=== PATIENT | male | born 1940 | race Caucasian/White ===

== ENCOUNTER → 2017-06-27 13:24 | Outpatient (CLI) | payer MEDICARE, SELFPAY ==
--- NOTE | 2017-06-27 13:37 | US_ITS ---
US retroperitoneal comp HISTORY: ITS.REASON: CHRONIC KIDNEY DISEASE STAGE 4 ORDERING PHYSICIAN: Lashon Ross PATIENT AGE: 77 years COMPARISON: None FINDINGS: RIGHT KIDNEY:There is a 4 cm right renal cyst along the mid polar region of the right kidney. The right kidney measures 10 x 5 x 5 cm.. Normal size and echogenicity. No hydronephrosis LEFT KIDNEY:Unremarkable. No hydronephrosis. Normal size and echogenicity. The left kidney measures 11.5 x 5 x 4.5 cm OTHER FINDINGS: No other pertinent findings IMPRESSION: 4 cm right renal cyst otherwise negative bilateral renal ultrasound
== END ==
PROVIDERS: Family Provider Nurse Practitioner Family; PCP Nurse Practitioner Family; Visit Provider Nurse Practitioner Family
DX: N18.4 Chronic kidney disease, stage 4 (severe) (principal)
CPT/HCPCS: 76770

== ENCOUNTER → 2017-07-19 09:32 | Outpatient (CLI) | payer MEDICARE, SELFPAY ==
[2017-07-19 09:39] LABS: Microscopic, Urine URINE MICROSCOPIC (MICROSCOPIC)
[2017-07-19 09:57] LABS: Appearance,Urine CLEAR (Clear); Bilirubin,Urine Negative (Negative); Blood, Urine Negative (Negative); Color,Urine YELLOW (Yellow); Glucose,Urine (UA) Negative (Negative); Ketones,Urine Negative (Negative); Leukocyte Esterase,Urine Negative (Negative); Nitrate,Urine Negative (Negative); Protein,Urine 1+ (Negative); Urobilinogen,Urine 0.2 EU/dl (0.2)
[2017-07-19 10:06] LABS: Creatinine,Urine Random 122 mg/dL (20-320); Total Protein,Urine Random 58.9 mg/dL (0.0-11.9)
[2017-07-19 10:15] LABS: Basophils # 0.1 K/mm3 (0-0.2); Basophils % 0.8 % (0.1-2.0); Eosinophils # 0.5 K/mm3 (0.0-0.4); Eosinophils % 5.5 % (0.1-12.0); Hemoglobin 11.5 g/dL (14.1-18.0); Lymphocytes # 1.5 K/mm3 (0.7-4.5); Lymphocytes % 18.6 K/mm3 (10-50); Mean Corpuscular Hemoglobin 25.8 pg (27.0-31.2); Mean Corpuscular Volume 83.2 fl (80-94); Mean Platelet Volume 7.6 fl (7.4-10.4); Monocytes # 0.4 K/mm3 (0.1-1.0); Monocytes % 5.4 % (1.7-9.3); Neutrophils # 5.7 K/mm3 (1.8-7.8); Neutrophils % 69.8 % (37.0-80.0); Platelet Count 277 K/mm3 (142-424); Red Blood Count 4.45 M/mm3 (4.60-6.20); Red Cell Distribution Width 15.2 % (11.5-17.5); White Blood Count 8.2 K/mm3 (4.8-10.8)
[2017-07-19 10:21] LABS: Bacteria,Urine 1+ /lpf
[2017-07-19 11:21] LABS: Anion Gap 15.8 mEq/L (5-15); Blood Urea Nitrogen 15 mg/dL (7-18); Calcium 8.9 mg/dL (8.5-10.1); Carbon Dioxide 30 mmol/L (21.0-32.0); Chloride 101 mmol/L (98-107); Creatinine,Serum 1.83 mg/dL (0.70-1.30); Estimated Glomerular Filt Rate 36 ml/min (>60); GFR (African American) 43 ML/MIN (>60); Glucose 151 mg/dL (74-106); Phosphorous 4.3 mg/dL (2.4-4.9); Sodium 142 mmol/L (136-145)
[2017-07-19 11:30] LABS: Potassium 4.8 mmoL/L (3.5-5.1)
[2017-07-20 18:28] LABS: Parathyroid Hormone Intact 60 pg/mL (15-65); Vitamin D 25 Hydroxy 24.6 ng/mL (30.0-100.0)
== END ==
PROVIDERS: PCP Nurse Practitioner Family; Visit Provider Internal Medicine Nephrology
DX: N18.4 Chronic kidney disease, stage 4 (severe) (principal)
CPT/HCPCS: 36415; 80069; 81001; 82570; 82652; 83970; 84155; 85025

== ENCOUNTER → 2017-12-06 08:36 | Outpatient (CLI) | payer MEDICARE, SELFPAY ==
--- NOTE | 2017-12-06 | AS_ITS ---
Renal Arterial Duplex IMPRESSIONS 1. The right renal artery appears normal. 2. The left renal artery appears normal. 3. No evidence of renal artery stenosis, bilaterally. 4. Incidental findings: A cyst is visualized at the right kidney measuring 4.3 X 3.9 cm. Complete renal arterial duplex. Duplex scan and Doppler flow study including spectral analysis, color and junior scale imaging. Height: Height: 177.8cm. Height: 70in. Weight: Weight: 89.8kg. Weight: 197.6lb. Body mass index: BMI: 28.4kg/m^2. Body surface area: BSA: 2.12m^2. Location: Vascular laboratory. Patient status: Outpatient. Tables: Arterial flow: + +--------+---------+ Location V sys V ed + +--------+---------+ Right renal - proximal -157cm/s -24.6cm/s + +--------+---------+ Right renal - mid 103cm/s 22.9cm/s + +--------+---------+ Right renal - distal 62.3cm/s 19.6cm/s + +--------+---------+ Left renal - proximal 87cm/s 26.9cm/s + +--------+---------+ Left renal - mid 72.5cm/s 23.8cm/s + +--------+---------+ Left renal - distal 83.9cm/s 29cm/s + +--------+---------+ Right renal - Origin 188cm/s 55cm/s + +--------+---------+ Left renal - Origin 97cm/s 20cm/s + +--------+---------+ Aorta 85cm/s 14cm/s + +--------+---------+ Artery mapping: + +-------+-------+ Location Patency Comment + +-------+-------+ Abdominal aorta - mid Patent 2 cm + +-------+-------+ Renal anatomy: + +------+------+ Left Right + +------+------+ Long axis 10.2cm 10.7cm + +------+------+ Short axis 4.4cm 5.8cm + +------+------+ (Report amended ) Electronically signed by: Ramon Gale [id number]
== END ==
PROVIDERS: Family Provider Nurse Practitioner Family; PCP Nurse Practitioner Family; Visit Provider Nurse Practitioner Family
DX: I10 Essential (primary) hypertension (principal)
CPT/HCPCS: 93976

== ENCOUNTER → 2017-12-17 10:41 | Outpatient (CLI) | payer MEDICARE, SELFPAY ==
[2017-12-17 11:07] LABS: Basophils % 0.6 % (0.1-2.0); Eosinophils # 0.2 K/mm3 (0.0-0.4); Eosinophils % 3.1 % (0.1-12.0); Hematocrit 38.6 % (42.0-52.0); Hemoglobin 11.7 g/dL (14.1-18.0); Lymphocytes # 1.5 K/mm3 (0.7-4.5); Lymphocytes % 20.6 K/mm3 (10-50); Mean Corpuscular HGB Conc 30.3 g/dL (31.8-35.4); Mean Corpuscular Hemoglobin 25.9 pg (27.0-31.2); Mean Corpuscular Volume 85.4 fl (80-94); Mean Platelet Volume 8.5 fl (7.4-10.4); Monocytes # 0.5 K/mm3 (0.1-1.0); Monocytes % 6.7 % (1.7-9.3); Neutrophils % 68.9 % (37.0-80.0); Platelet Count 196 K/mm3 (142-424); Red Blood Count 4.52 M/mm3 (4.60-6.20); Red Cell Distribution Width 15.4 % (11.5-17.5); White Blood Count 7.3 K/mm3 (4.8-10.8)
--- NOTE | 2017-12-17 11:08 | CT_ITS ---
CT head/brain wo con Ordering Physician: Lashon Ross Patient Age: 77 years: Male HISTORY: ITS.REASON: SYNCOPE Syncopal episode on Sunday. Right fore head when fell dizzy on and off dizzy since that TECHNIQUE: Routine axial CT head without contrast with brain and bone windows performed and reviewed. COMPARISON :04/09/2015 CT head FINDINGS No acute intracranial findings. No hemorrhage. No mass. No subdural collection or extra-axial collection. No territorial infarct. There is diffuse cerebral atrophy which shown very subtle progression since 2015. 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 Stable appearance since 2014. Chronic small vessel deep white matter ischemic gliotic changes elsewhere This does include a new area of low density and deep white matter at right frontal lobe overlying the anterior aspect right lateral ventricle image 28 most likely this reflects a chronic small vessel ischemic region which is occurred since 2014. Doubt acute. Difficult to totally exclude. There is also some other slightly more evident deep white matter changes adjacent to the body of the right lateral ventricle, axial image 29, 28, & vague low-density white matter changes overlying the atrial lateral ventricles likely stable. Posterior fossa unremarkable. Prominent mucosal thickening is near opacification of the maxillary sinuses. AP mild amount of air remains essentially both maxillary sinuses. Generous mucosal thickening left ethmoid air cells and moderate right ethmoid air cells noted. Sphenoid sinuses clear. Frontal sinuses clear Mastoid air cells are well-developed. Mild mastoid effusion bilateral... Minimal mastoid air cell opacification/left mastoid tip and posteriorly reflecting minimal mastoid effusion. Similar appearance towards the right mastoid air tip air cells... These reflect mild mastoid effusion. Bilateral Middle ear clear. IMPRESSION . 1. No hemorrhage. No definitive acute findings slight progression of cerebral atrophy. Since 2014 2. Chronic small vessel deep white matter ischemic changes again noted bilaterally . There are some additional low density areas periventricular deep white matter, right frontal lobe; which have developed since 2015 CT.. Favor these more likely reflect interval chronic small vessel ischemic gliotic foci; but cannot totally exclude a recent event Require correlation. (Any new left-sided symptoms?) 3. 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
[2017-12-17 12:27] LABS: Alanine Aminotransferase 30 U/L (12-78); Albumin Level 3.8 gm/dL (3.4-5.0); Albumin/Globulin Ratio 1.2 (1.1-1.8); Alkaline Phosphatase 137 U/L (46-116); Anion Gap 9.1 mEq/L (5-15); Aspartate Amino Transferase 19 U/L (15-37); Bilirubin,Total 0.3 mg/dL (0.2-1.0); Blood Urea Nitrogen 25 mg/dL (7-18); Calcium 8.8 mg/dL (8.5-10.1); Carbon Dioxide 33 mmol/L (21.0-32.0); Chloride 104 mmol/L (98-107); Creatinine,Serum 1.88 mg/dL (0.70-1.30); Estimated Glomerular Filt Rate 35 ml/min (>60); GFR (African American) 42 ML/MIN (>60); Globulin 3.1 gm/dl (1.3-3.2); Glucose 97 mg/dL (74-106); Potassium 5.1 mmoL/L (3.5-5.1); Sodium 141 mmol/L (136-145); Total Protein,Serum 6.9 gm/dL (6.4-8.2)
== END ==
PROVIDERS: Visit Provider Nurse Practitioner Family
DX: R55 Syncope and collapse (principal)
CPT/HCPCS: 36415; 70450; 80053; 85025; 93005

== ENCOUNTER → 2018-01-21 09:59 | Outpatient (CLI) | payer MEDICARE, SELFPAY ==
[2018-01-21 10:03] LABS: Microscopic, Urine URINE MICROSCOPIC (MICROSCOPIC)
[2018-01-21 10:29] LABS: Basophils % 0.3 % (0.1-2.0); Eosinophils # 0.1 K/mm3 (0.0-0.4); Eosinophils % 1.7 % (0.1-12.0); Hematocrit 37.6 % (42.0-52.0); Lymphocytes # 1.2 K/mm3 (0.7-4.5); Lymphocytes % 15.6 K/mm3 (10-50); Mean Corpuscular Hemoglobin 26.9 pg (27.0-31.2); Mean Corpuscular Volume 83.9 fl (80-94); Mean Platelet Volume 7.7 fl (7.4-10.4); Monocytes # 0.4 K/mm3 (0.1-1.0); Monocytes % 5.6 % (1.7-9.3); Neutrophils # 5.7 K/mm3 (1.8-7.8); Neutrophils % 76.7 % (37.0-80.0); Platelet Count 209 K/mm3 (142-424); Red Blood Count 4.49 M/mm3 (4.60-6.20); Red Cell Distribution Width 15.4 % (11.5-17.5); White Blood Count 7.5 K/mm3 (4.8-10.8)
[2018-01-21 11:11] LABS: Appearance,Urine CLEAR (Clear); Bilirubin,Urine Negative (Negative); Blood, Urine Negative (Negative); Color,Urine YELLOW (Yellow); Glucose,Urine (UA) Negative (Negative); Ketones,Urine Negative (Negative); Leukocyte Esterase,Urine Negative (Negative); Nitrate,Urine Negative (Negative); Protein,Urine Negative (Negative); Specific Gravity, Urine <= 1.005 (1.005-1.030); Urobilinogen,Urine 0.2 EU/dl (0.2)
[2018-01-21 11:16] LABS: Creatinine,Urine Random 51 mg/dL (20-320); Total Protein,Urine Random 23.2 mg/dL (0.0-11.9)
[2018-01-21 11:17] LABS: Albumin Level 4.2 gm/dL (3.4-5.0); Anion Gap 13.3 mEq/L (5-15); Blood Urea Nitrogen 25 mg/dL (7-18); Calcium 8.9 mg/dL (8.5-10.1); Carbon Dioxide 27 mmol/L (21.0-32.0); Chloride 100 mmol/L (98-107); Creatinine,Serum 1.64 mg/dL (0.70-1.30); Estimated Glomerular Filt Rate 41 ml/min (>60); GFR (African American) 49 ML/MIN (>60); Glucose 130 mg/dL (74-106); Phosphorous 4.2 mg/dL (2.4-4.9); Potassium 5.3 mmoL/L (3.5-5.1); Sodium 135 mmol/L (136-145)
[2018-01-21 11:18] LABS: Bacteria,Urine 1+ /lpf; Squamous Epithelial Cell,Urine Occasional #/hpf (0-5); WBC,Urine Occasional #/hpf (0-3)
[2018-01-23 16:50] LABS: Parathyroid Hormone Intact 52 pg/mL (15-65); Vitamin D 25 Hydroxy 29.4 ng/mL (30.0-100.0)
== END ==
PROVIDERS: Visit Provider Internal Medicine Nephrology
DX: N18.4 Chronic kidney disease, stage 4 (severe) (principal)
CPT/HCPCS: 36415; 80069; 81001; 82570; 82652; 83970; 84155; 85025

== ENCOUNTER → 2018-02-11 13:20 | Outpatient (POV) | payer MEDICARE, SELFPAY | PROVIDERS: Family Provider Nurse Practitioner Family; PCP Nurse Practitioner Family; Visit Provider Internal Medicine Nephrology | DX: Z00.00 Encounter for general adult medical examination without abnormal findings (principal) ==

== ENCOUNTER → 2018-03-08 09:07 | Outpatient (CLI) | payer MEDICARE, SELFPAY ==
[2018-03-08 10:42] LABS: Albumin Level 3.8 gm/dL (3.4-5.0); Anion Gap 12.2 mEq/L (5-15); Blood Urea Nitrogen 27 mg/dL (7-18); Calcium 8.9 mg/dL (8.5-10.1); Carbon Dioxide 30 mmol/L (21.0-32.0); Chloride 102 mmol/L (98-107); Creatinine,Serum 2.03 mg/dL (0.70-1.30); Estimated Glomerular Filt Rate 32 ml/min (>60); GFR (African American) 39 ML/MIN (>60); Glucose 208 mg/dL (74-106); Phosphorous 3.7 mg/dL (2.4-4.9); Potassium 5.2 mmoL/L (3.5-5.1); Sodium 139 mmol/L (136-145)
== END ==
PROVIDERS: PCP Nurse Practitioner Family; Visit Provider Internal Medicine Nephrology
DX: N18.4 Chronic kidney disease, stage 4 (severe) (principal)
CPT/HCPCS: 36415; 80069

== ENCOUNTER → 2018-03-11 14:35 | Outpatient (POV) | payer MEDICARE, SELFPAY | PROVIDERS: Family Provider Nurse Practitioner Family; PCP Nurse Practitioner Family; Visit Provider Internal Medicine Nephrology | DX: Z00.00 Encounter for general adult medical examination without abnormal findings (principal) ==

== ENCOUNTER → 2018-10-23 08:34 | Outpatient (CLI) | payer MEDICARE, SELFPAY ==
[2018-10-23 08:36] LABS: Microscopic, Urine URINE MICROSCOPIC (MICROSCOPIC)
[2018-10-23 09:13] LABS: Basophils # 0.1 K/mm3 (0-0.2); Eosinophils # 0.4 K/mm3 (0.0-0.4); Eosinophils % 6.4 % (0.1-12.0); Hematocrit 35.3 % (42.0-52.0); Hemoglobin 11.4 g/dL (14.1-18.0); Lymphocytes # 1.6 K/mm3 (0.7-4.5); Lymphocytes % 26.9 % (10-50); Mean Corpuscular HGB Conc 32.3 g/dL (31.8-35.4); Mean Corpuscular Hemoglobin 27.1 pg (27.0-31.2); Mean Corpuscular Volume 83.9 fl (80-94); Mean Platelet Volume 8.2 fl (7.4-10.4); Monocytes # 0.3 K/mm3 (0.1-1.0); Monocytes % 5.9 % (1.7-9.3); Neutrophils # 3.5 K/mm3 (1.8-7.8); Neutrophils % 59.8 % (37.0-80.0); Platelet Count 189 K/mm3 (142-424); Red Blood Count 4.21 M/mm3 (4.60-6.20); Red Cell Distribution Width 15.7 % (11.5-17.5); White Blood Count 5.9 K/mm3 (4.8-10.8)
[2018-10-23 10:24] LABS: Appearance,Urine CLEAR (Clear); Bilirubin,Urine Negative (Negative); Blood, Urine Negative (Negative); Color,Urine YELLOW (Yellow); Glucose,Urine (UA) Negative (Negative); Ketones,Urine Negative (Negative); Leukocyte Esterase,Urine Negative (Negative); Nitrate,Urine Negative (Negative); Protein,Urine Negative (Negative); Specific Gravity, Urine <= 1.005 (1.005-1.030); Urobilinogen,Urine 0.2 EU/dl (0.2)
[2018-10-23 11:02] LABS: Creatinine,Urine Random 68 mg/dL (20-320)
[2018-10-23 11:15] LABS: Bacteria,Urine Trace /lpf
[2018-10-23 11:20] LABS: Albumin Level 3.8 gm/dL (3.4-5.0); Anion Gap 15.9 mEq/L (5-15); Blood Urea Nitrogen 21 mg/dL (7-18); Carbon Dioxide 28 mmol/L (21.0-32.0); Chloride 100 mmol/L (98-107); Creatinine,Serum 2.26 mg/dL (0.70-1.30); Estimated Glomerular Filt Rate 28 ml/min (>60); GFR (African American) 34 ML/MIN (>60); Glucose 161 mg/dL (74-106); Phosphorous 5.3 mg/dL (2.4-4.9); Potassium 4.9 mmoL/L (3.5-5.1); Sodium 139 mmol/L (136-145)
[2018-10-25 08:11] LABS: Microalbumin, Urine 25.5 ug/mL (Not Estab.)
== END ==
PROVIDERS: Visit Provider Internal Medicine Nephrology
DX: N18.3 Chronic kidney disease, stage 3 (moderate) (principal)
CPT/HCPCS: 36415; 80069; 81001; 82043; 82570; 85025

== ENCOUNTER → 2018-10-28 12:38 | Outpatient (POV) | payer MEDICARE, SELFPAY | PROVIDERS: Visit Provider Internal Medicine Nephrology | DX: Z00.00 Encounter for general adult medical examination without abnormal findings (principal) ==

== ENCOUNTER → 2019-04-25 09:15 | Outpatient (CLI) | payer MEDICARE, SELFPAY ==
--- NOTE | 2019-04-25 09:19 | XR_ITS ---
PROCEDURE: XR DEXA AXIAL SKELETON CLINICAL HISTORY: OSTEOPOROSIS,H/O OSTEOARTHRITIS COMPARISON: No exams were available for comparison FINDINGS: L1-L4 density is 1.428 grams/centimeters sq with a T-score of 1.7. Mean hip density is 0.802 grams/centimeters sq with a T-score -2.1 which is low.. The age matched Z-score is -0.9 of the hips and 1.9 of the lumbar spine IMPRESSION: Low bone density. Fracture risk is high. Suggest treatment and follow-up exam in 1 year. Dictated by: Ramon Gale MD 04/25/2019 15:27 Electronically signed by Ramon Gale MD in [place] 04/25/2019 15:27
[2019-04-25 10:22] LABS: Basophils # 0.1 K/mm3 (0-0.2); Basophils % 1.2 % (0.1-2.0); Eosinophils # 0.3 K/mm3 (0.0-0.4); Eosinophils % 5.1 % (0.1-12.0); Hematocrit 41.5 % (42.0-52.0); Lymphocytes # 1.3 K/mm3 (0.7-4.5); Mean Corpuscular HGB Conc 31.4 g/dL (31.8-35.4); Mean Corpuscular Hemoglobin 27.5 pg (27.0-31.2); Mean Corpuscular Volume 87.8 fl (80-94); Monocytes # 0.4 K/mm3 (0.1-1.0); Monocytes % 5.9 % (1.7-9.3); Neutrophils # 4.5 K/mm3 (1.8-7.8); Neutrophils % 67.8 % (37.0-80.0); Platelet Count 198 K/mm3 (142-424); Red Blood Count 4.73 M/mm3 (4.60-6.20); Red Cell Distribution Width 14.4 % (11.5-17.5); White Blood Count 6.6 K/mm3 (4.8-10.8)
[2019-04-25 11:20] LABS: Albumin Level 3.9 gm/dL (3.4-5.0); Anion Gap 9.7 mEq/L (5-15); Blood Urea Nitrogen 22 mg/dL (7-18); Calcium 9.1 mg/dL (8.5-10.1); Carbon Dioxide 32 mmol/L (21.0-32.0); Chloride 102 mmol/L (98-107); Creatinine,Serum 2.11 mg/dL (0.70-1.30); Estimated Glomerular Filt Rate 30 ml/min (>60); GFR (African American) 37 ML/MIN (>60); Glucose 173 mg/dL (74-106); Phosphorous 4.4 mg/dL (2.4-4.9); Potassium 4.7 mmoL/L (3.5-5.1); Sodium 139 mmol/L (136-145)
== END ==
PROVIDERS: PCP Nurse Practitioner Family; Visit Provider Internal Medicine Nephrology
DX: M81.0 Age-related osteoporosis without current pathological fracture (principal); N18.4 Chronic kidney disease, stage 4 (severe)
CPT/HCPCS: 36415; 77080; 80069; 85025

== ENCOUNTER → 2019-04-25 10:04 | Outpatient (CLI) | payer MEDICARE, SELFPAY | PROVIDERS: Visit Provider Internal Medicine Nephrology | DX: N18.4 Chronic kidney disease, stage 4 (severe) (principal); M81.0 Age-related osteoporosis without current pathological fracture | CPT/HCPCS: 36415; 77080; 80069; 85025 ==

== ENCOUNTER → 2019-05-12 15:15 | Outpatient (POV) | payer MEDICARE, SELFPAY | PROVIDERS: Visit Provider Internal Medicine Nephrology | DX: Z00.00 Encounter for general adult medical examination without abnormal findings (principal) ==

== ENCOUNTER → 2020-02-02 08:54 | Outpatient (CLI) | payer MEDICARE, SELFPAY ==
[2020-02-02 09:27] LABS: Basophils # 0.1 K/mm3 (0-0.2); Eosinophils # 0.4 K/mm3 (0.0-0.4); Hematocrit 39.9 % (42.0-52.0); Hemoglobin 13.7 g/dL (14.1-18.0); Lymphocytes # 1.5 K/mm3 (0.7-4.5); Lymphocytes % 16.3 % (10-50); Mean Corpuscular HGB Conc 34.3 g/dL (31.8-35.4); Mean Corpuscular Hemoglobin 28.8 pg (27.0-31.2); Mean Corpuscular Volume 84.1 fl (80-94); Mean Platelet Volume 7.7 fl (7.4-10.4); Monocytes # 0.5 K/mm3 (0.1-1.0); Monocytes % 5.5 % (1.7-9.3); Neutrophils # 6.5 K/mm3 (1.8-7.8); Platelet Count 241 K/mm3 (142-424); Red Blood Count 4.75 M/mm3 (4.60-6.20); Red Cell Distribution Width 15.1 % (11.5-17.5); White Blood Count 8.8 K/mm3 (4.8-10.8)
[2020-02-02 09:49] LABS: Albumin Level 4.1 g/dl (3.5-5.0); Anion Gap 15.4 mEq/L (5-15); Blood Urea Nitrogen 16 mg/dl (9-20); Calcium 9.1 mg/dl (8.4-10.2); Carbon Dioxide 29 mmol/L (22.0-30.0); Chloride 97 mmol/L (98-107); Estimated Glomerular Filt Rate 45 ml/min (>60); GFR (African American) 54 ML/MIN (>60); Glucose 168 mg/dl (74-100); Phosphorous 4.4 mg/dl (2.5-4.5); Potassium 4.4 mmoL/L (3.5-5.1); Sodium 137 mmol/L (136-145); Uric Acid 7.7 mg/dl (3.5-8.5)
[2020-02-02 10:06] LABS: 25-OH Vitamin D, Total 17.8 ng/mL (30-100)
== END ==
PROVIDERS: Visit Provider Internal Medicine Nephrology
DX: N18.4 Chronic kidney disease, stage 4 (severe) (principal); M81.0 Age-related osteoporosis without current pathological fracture
CPT/HCPCS: 36415; 80069; 82306; 84550; 85025

== ENCOUNTER → 2020-02-25 09:36 | Outpatient (POV) | payer MEDICARE, SELFPAY | PROVIDERS: Visit Provider Internal Medicine Nephrology | DX: Z00.00 Encounter for general adult medical examination without abnormal findings (principal) ==

== ENCOUNTER → 2021-03-11 08:20 | Outpatient (CLI) | payer MEDICARE, SELFPAY ==
[2021-03-11 08:41] LABS: Basophils # 0.1 K/mm3 (0-0.2); Basophils % 0.9 % (0.1-2.0); Eosinophils # 0.4 K/mm3 (0.0-0.4); Eosinophils % 5.2 % (0.1-12.0); Hematocrit 41.6 % (42.0-52.0); Hemoglobin 13.2 g/dL (14.1-18.0); Lymphocytes # 1.8 K/mm3 (0.7-4.5); Lymphocytes % 26.6 % (10-50); Mean Corpuscular HGB Conc 31.7 g/dL (31.8-35.4); Mean Corpuscular Hemoglobin 26.8 pg (27.0-31.2); Mean Corpuscular Volume 84.6 fl (80-94); Mean Platelet Volume 7.5 fl (7.4-10.4); Monocytes # 0.4 K/mm3 (0.1-1.0); Monocytes % 6.2 % (1.7-9.3); Neutrophils # 4.2 K/mm3 (1.8-7.8); Platelet Count 204 K/mm3 (142-424); Red Blood Count 4.92 M/mm3 (4.60-6.20); Red Cell Distribution Width 14.3 % (11.5-17.5); White Blood Count 6.9 K/mm3 (4.8-10.8)
[2021-03-11 08:49] LABS: Creatinine,Urine Random 81 mg/dL (Not Estab.)
[2021-03-11 10:18] LABS: Albumin Level 4.5 g/dl (3.5-5.0); Anion Gap 18.6 mEq/L (5-15); Blood Urea Nitrogen 18 mg/dl (9-20); Carbon Dioxide 30 mmol/L (22.0-30.0); Chloride 95 mmol/L (98-107); Estimated Glomerular Filt Rate 42 ml/min (>60); GFR (African American) 50 ML/MIN (>60); Glucose 198 mg/dl (74-100); Phosphorous 4.5 mg/dl (2.5-4.5); Potassium 5.6 mmoL/L (3.5-5.1); Sodium 138 mmol/L (136-145)
[2021-03-11 10:34] LABS: 25-OH Vitamin D, Total 53.1 ng/mL (30-100)
== END ==
PROVIDERS: Visit Provider Internal Medicine Nephrology
DX: N18.30 Chronic kidney disease, stage 3 unspecified (principal)
CPT/HCPCS: 36415; 80069; 82306; 82570; 84155; 85025

== ENCOUNTER → 2021-03-14 13:15 | Outpatient (POV) | payer MEDICARE, SELFPAY | PROVIDERS: Visit Provider Internal Medicine Nephrology | DX: Z00.00 Encounter for general adult medical examination without abnormal findings (principal) ==

== ENCOUNTER → 2021-09-07 08:26 | Outpatient (CLI) | payer MEDICARE, SELFPAY ==
[2021-09-07 10:11] LABS: Albumin Level 4.5 g/dl (3.5-5.0); Anion Gap 13.9 mEq/L (5-15); Blood Urea Nitrogen 27 mg/dl (9-20); Calcium 9.1 mg/dl (8.4-10.2); Carbon Dioxide 33 mmol/L (22.0-30.0); Chloride 97 mmol/L (98-107); Estimated Glomerular Filt Rate 39 ml/min (>60); GFR (African American) 47 ML/MIN (>60); Glucose 160 mg/dl (74-100); Phosphorous 4.4 mg/dl (2.5-4.5); Potassium 4.9 mmoL/L (3.5-5.1); Sodium 139 mmol/L (136-145)
[2021-09-07 10:49] LABS: Creatinine,Urine Random 88 mg/dL (Not Estab.)
== END ==
PROVIDERS: Visit Provider Internal Medicine Nephrology
DX: N18.32 Chronic kidney disease, stage 3b (principal); I12.9 Hypertensive chronic kidney disease with stage 1 through stage 4 chronic kidney disease, or unspecified chronic kidney disease; N25.0 Renal osteodystrophy
CPT/HCPCS: 36415; 80069; 82043; 82570

== ENCOUNTER → 2021-09-12 09:43 | Outpatient (POV) | payer MEDICARE, SELFPAY | PROVIDERS: Visit Provider Internal Medicine Nephrology | DX: Z00.00 Encounter for general adult medical examination without abnormal findings (principal) ==

== ENCOUNTER → 2022-07-17 09:02 | Outpatient (CLI) | payer MEDICARE, SELFPAY ==
[2022-07-17 09:38] LABS: Basophils # 0.1 K/mm3 (0-0.2); Basophils % 1.8 % (0.1-2.0); Eosinophils # 0.4 K/mm3 (0.0-0.4); Eosinophils % 5.4 % (0.1-12.0); Hematocrit 40.2 % (42.0-52.0); Hemoglobin 12.9 g/dL (14.1-18.0); Lymphocytes # 1.8 K/mm3 (0.7-4.5); Mean Corpuscular HGB Conc 32.1 g/dL (31.8-35.4); Mean Corpuscular Hemoglobin 26.7 pg (27.0-31.2); Mean Corpuscular Volume 83.3 fl (80-94); Mean Platelet Volume 8.5 fl (7.4-10.4); Monocytes # 0.3 K/mm3 (0.1-1.0); Monocytes % 4.5 % (1.7-9.3); Neutrophils # 4.2 K/mm3 (1.8-7.8); Neutrophils % 61.4 % (37.0-80.0); Platelet Count 273 K/mm3 (142-424); Red Blood Count 4.83 M/mm3 (4.60-6.20); Red Cell Distribution Width 15.8 % (11.5-17.5); White Blood Count 6.8 K/mm3 (4.8-10.8)
[2022-07-17 10:16] LABS: Albumin Level 4.5 g/dl (3.5-5.0); Anion Gap 12.8 mEq/L (5-15); Blood Urea Nitrogen 19 mg/dl (9-20); Calcium 8.8 mg/dl (8.4-10.2); Carbon Dioxide 31 mmol/L (22.0-30.0); Chloride 102 mmol/L (98-107); Estimated Glomerular Filt Rate 39 ml/min (>60); GFR (African American) 47 ML/MIN (>60); Glucose 168 mg/dl (74-100); Phosphorous 3.9 mg/dl (2.5-4.5); Potassium 3.8 mmoL/L (3.5-5.1); Sodium 142 mmol/L (136-145)
== END ==
PROVIDERS: PCP Nurse Practitioner Family; Visit Provider Internal Medicine Nephrology
DX: N18.32 Chronic kidney disease, stage 3b (principal)
CPT/HCPCS: 36415; 80069; 82306; 85025

== ENCOUNTER → 2022-07-24 10:06 | Outpatient (POV) | payer MEDICARE, SELFPAY | PROVIDERS: Visit Provider Internal Medicine Nephrology | DX: Z00.00 Encounter for general adult medical examination without abnormal findings (principal) ==

== ENCOUNTER → 2023-02-27 10:50 | Outpatient (CLI) | payer MEDICARE, SELFPAY ==
[2023-02-27 11:32] LABS: Microalbumin/Creatinine Ratio 131.5
[2023-02-27 11:36] LABS: Creatinine,Urine Random 113 mg/dL (Not Estab.)
[2023-02-27 11:42] LABS: Albumin Level 4.5 g/dl (3.5-5.0); Anion Gap 17.8 mEq/L (5-15); Blood Urea Nitrogen 38 mg/dl (9-20); Calcium 9.1 mg/dl (8.4-10.2); Carbon Dioxide 27 mmol/L (22.0-30.0); Chloride 102 mmol/L (98-107); Estimated Glomerular Filt Rate 29 ml/min (>60); GFR (African American) 35 ML/MIN (>60); Glucose 128 mg/dl (74-100); Phosphorous 5.1 mg/dl (2.5-4.5); Potassium 4.8 mmoL/L (3.5-5.1); Sodium 142 mmol/L (136-145)
== END ==
PROVIDERS: PCP Nurse Practitioner Family; Visit Provider Internal Medicine Nephrology
DX: N18.32 Chronic kidney disease, stage 3b (principal); N25.0 Renal osteodystrophy; I10 Essential (primary) hypertension
CPT/HCPCS: 36415; 80069; 82043; 82570

== ENCOUNTER → 2023-03-05 08:58 | Outpatient (POV) | payer MEDICARE, SELFPAY | PROVIDERS: Visit Provider Nurse Practitioner | DX: Z00.00 Encounter for general adult medical examination without abnormal findings (principal) ==

== ENCOUNTER 2023-08-24 07:24 | Outpatient (CLI) | payer MEDICARE, SELFPAY ==
[2023-08-24 07:33] LABS: Microscopic, Urine URINE MICROSCOPIC (MICROSCOPIC)
[2023-08-24 08:14] LABS: Hematocrit 42.2 % (42.0-52.0); Hemoglobin 13.2 g/dL (14.1-18.0); Mean Corpuscular HGB Conc 31.4 g/dL (31.8-35.4); Mean Corpuscular Hemoglobin 27.6 pg (27.0-31.2); Mean Corpuscular Volume 88.1 fl (80-94); Platelet Count 182 K/mm3 (142-424); Red Blood Count 4.79 M/mm3 (4.60-6.20); Red Cell Distribution Width 16.4 % (11.5-17.5); White Blood Count 6.5 K/mm3 (4.8-10.8)
[2023-08-24 08:45] LABS: Appearance,Urine CLEAR (Clear); Bilirubin,Urine Negative (Negative); Blood, Urine Negative (Negative); Color,Urine YELLOW (Yellow); Glucose,Urine (UA) Negative (Negative); Ketones,Urine Negative (Negative); Leukocyte Esterase,Urine Negative (Negative); Nitrate,Urine Negative (Negative); Protein,Urine 1+ (Negative); Specific Gravity, Urine 1.015 (1.005-1.030); Urobilinogen,Urine 0.2 EU/dl (0.2)
[2023-08-24 09:32] LABS: Albumin Level 4.1 g/dl (3.5-5.0); Anion Gap 13.6 mEq/L (5-15); Blood Urea Nitrogen 27 mg/dl (9-20); Calcium 8.9 mg/dl (8.4-10.2); Carbon Dioxide 27 mmol/L (22.0-30.0); Chloride 105 mmol/L (98-107); Estimated Glomerular Filt Rate 41 ml/min (>60); GFR (African American) 50 ML/MIN (>60); Glucose 170 mg/dl (74-100); Phosphorous 4.6 mg/dl (2.5-4.5); Potassium 4.6 mmoL/L (3.5-5.1); Sodium 141 mmol/L (136-145)
[2023-08-24 09:41] LABS: Intact Parathyroid Hormone 132.7 pg/mL (7.5-53.5)
[2023-08-24 10:23] LABS: 25-OH Vitamin D, Total 30.6 ng/mL (30-100)
[2023-08-24 11:43] LABS: Bacteria,Urine Trace /lpf; WBC,Urine Occasional #/hpf (0-3)
[2023-08-24 13:37] LABS: Creatinine,Urine Random 79 mg/dL (Not Estab.)
== END 2023-08-24 23:59 ==
LOC: LAB 07:27
PROVIDERS: PCP Nurse Practitioner Family; Visit Provider Nurse Practitioner
DX: N18.32 Chronic kidney disease, stage 3b (principal)
CPT/HCPCS: 36415; 80069; 81001; 82306; 82570; 83970; 84155; 85014; 85018; 85048; 85049

== ENCOUNTER 2024-01-28 07:05 | Outpatient (CLI) | payer MEDICARE, SELFPAY ==
[2024-01-28 07:12] LABS: Microscopic, Urine URINE MICROSCOPIC (MICROSCOPIC)
[2024-01-28 07:44] LABS: Appearance,Urine CLEAR (Clear); Bilirubin,Urine Negative (Negative); Blood, Urine Negative (Negative); Color,Urine YELLOW (Yellow); Glucose,Urine (UA) Negative (Negative); Ketones,Urine Negative (Negative); Leukocyte Esterase,Urine Negative (Negative); Nitrate,Urine Negative (Negative); Protein,Urine 1+ (Negative); Specific Gravity, Urine 1.015 (1.005-1.030); Urobilinogen,Urine 0.2 EU/dl (0.2)
[2024-01-28 07:45] LABS: Hematocrit 42.3 % (42.0-52.0); Hemoglobin 13.5 g/dL (14.1-18.0); Mean Corpuscular HGB Conc 31.8 g/dL (31.8-35.4); Mean Corpuscular Volume 87.9 fl (80-94); Platelet Count 166 K/mm3 (142-424); Red Blood Count 4.81 M/mm3 (4.60-6.20); Red Cell Distribution Width 16.3 % (11.5-17.5); White Blood Count 6.9 K/mm3 (4.8-10.8)
[2024-01-28 08:08] LABS: Creatinine,Urine Random 69 mg/dL (Not Estab.)
[2024-01-28 08:09] LABS: Microalbumin/Creatinine Ratio 318.6
[2024-01-28 08:11] LABS: Squamous Epithelial Cell,Urine Occasional #/hpf (0-5); WBC,Urine Occasional #/hpf (0-3)
[2024-01-28 08:29] LABS: Albumin Level 4.4 g/dl (3.5-5.0); Chloride 103 mmol/L (98-107); Potassium 4.1 mmoL/L (3.5-5.1); Sodium 143 mmol/L (136-145)
[2024-01-28 08:32] LABS: Anion Gap 13.1 mEq/L (5-15); Blood Urea Nitrogen 27 mg/dl (9-20); Carbon Dioxide 31 mmol/L (22.0-30.0); Estimated Glomerular Filt Rate 36 ml/min (>60); GFR (African American) 44 ML/MIN (>60); Glucose 159 mg/dl (74-100); Phosphorous 4.7 mg/dl (2.5-4.5)
== END 2024-01-28 23:59 | disposition home or self-care (01) ==
LOC: LAB 07:07
PROVIDERS: PCP Nurse Practitioner Family; Visit Provider Nurse Practitioner
DX: N18.32 Chronic kidney disease, stage 3b (principal)
CPT/HCPCS: 36415; 80069; 81001; 82043; 82570; 84156; 85014; 85018; 85048; 85049

== ENCOUNTER 2024-08-15 12:17 | Outpatient (CLI) | payer MEDICARE, SELFPAY ==
[2024-08-15 12:28] LABS: Microscopic, Urine URINE MICROSCOPIC (MICROSCOPIC)
[2024-08-15 12:48] LABS: Hematocrit 42.1 % (42.0-52.0); Hemoglobin 13.5 g/dL (14.1-18.0); Mean Corpuscular HGB Conc 32.1 g/dL (31.8-35.4); Mean Corpuscular Hemoglobin 27.2 pg (27.0-31.2); Mean Corpuscular Volume 84.7 fl (80-94); Platelet Count 191 K/mm3 (142-424); Red Blood Count 4.97 M/mm3 (4.60-6.20); Red Cell Distribution Width 14.9 % (11.5-17.5)
[2024-08-15 12:50] LABS: Appearance,Urine CLEAR (Clear); Bilirubin,Urine Negative (Negative); Blood, Urine Negative (Negative); Color,Urine YELLOW (Yellow); Glucose,Urine (UA) Negative (Negative); Ketones,Urine Negative (Negative); Leukocyte Esterase,Urine Negative (Negative); Nitrate,Urine Negative (Negative); Protein,Urine 1+ (Negative); Urobilinogen,Urine 0.2 EU/dl (0.2)
[2024-08-15 13:07] LABS: Creatinine,Urine Random 118 mg/dL (Not Estab.)
[2024-08-15 13:25] LABS: Chloride 99 mmol/L (98-107)
[2024-08-15 13:26] LABS: Albumin Level 4.4 g/dl (3.5-5.0); Sodium 139 mmol/L (136-145)
[2024-08-15 13:29] LABS: Blood Urea Nitrogen 27 mg/dl (9-20); Carbon Dioxide 30 mmol/L (22.0-30.0); Estimated Glomerular Filt Rate 36 ml/min (>60); GFR (African American) 44 ML/MIN (>60); Glucose 146 mg/dl (74-100); Phosphorous 3.9 mg/dl (2.5-4.5)
[2024-08-15 13:39] LABS: Squamous Epithelial Cell,Urine Occasional #/hpf (0-5); WBC,Urine Occasional #/hpf (0-3)
== END 2024-08-15 23:59 | disposition home or self-care (01) ==
LOC: LAB 12:18
PROVIDERS: PCP Nurse Practitioner Family; Visit Provider Nurse Practitioner
DX: N18.32 Chronic kidney disease, stage 3b (principal)
CPT/HCPCS: 36415; 80069; 81001; 82570; 84156; 85027